=== PATIENT | male | born 1955 | race Caucasian/White ===

== ENCOUNTER 2020-04-28 10:31 | Outpatient (CLI) | payer BC ==
--- NOTE | 2020-04-28 10:56 | RAD ---
THORACIC SPINE: Date: 04/28/2020 INDICATION: Back pain. FINDINGS: Thoracic vertebra maintain height and alignment. Moderate degenerative changes are noted with anterio r and lateral osteophytes. Degenerative disc changes throughout. No compression deformity. No lytic o r blastic lesion identified. IMPRESSION: Moderate degenerative changes of thoracic spine. POS: AGW
--- NOTE | 2020-04-28 10:57 | RAD ---
CERVICAL SPINE 3 VIEWS: Date: 04/28/2020 HISTORY: Neck pain. FINDINGS: Moderate degenerative changes of the mid cervical spine. There is slight anterolisthesis at the C4-5 level. There is disc narrowing and degenerative spurring and spondylosis at C5-6 and C6-7. C7-T1 is p oorly evaluated due to overlying attenuation. IMPRESSION: There are moderate degenerative changes of the mid and lower cervical spine, most pronounced at C5-6. POS: AGW
== END 2020-04-28 10:32 | disposition home or self-care (01) ==
LOC: BICRAD 10:31
PROVIDERS: ATTEND Chiropractor
DX: M54.2 Cervicalgia (principal); M54.6 Pain in thoracic spine; M53.84 Other specified dorsopathies, thoracic region; M53.82 Other specified dorsopathies, cervical region; M79.10 Myalgia, unspecified site; M47.812 Spondylosis without myelopathy or radiculopathy, cervical region; M47.814 Spondylosis without myelopathy or radiculopathy, thoracic region
CPT/HCPCS: 72040; 72070